=== PATIENT | male | born 1970 | race Two or more races ===

== ENCOUNTER 2022-10-05 02:34 | Emergency (ER) | payer MEDICAID ==
[~2022-10-05] VITALS: Ht 175.3 cm; Wt 80.7 kg
[2022-10-05] MEDS ORDERED: HYDR-3972 PO (03:56)
[2022-10-05] MEDS ORDERED: HYDROCODONE/APAP 5/325MG TABLET ONE (04:00)
[2022-10-05] MEDS ORDERED: HYDROCODONE/APAP 5/325MG TABLET PO ONE (04:00)
[2022-10-05 04:13] VITALS: BP 130/74
== END 2022-10-05 04:13 | disposition home or self-care (01) ==
LOC: ER 02:36
DX: S22.42XA Multiple fractures of ribs, left side, initial encounter for closed fracture (principal); Z79.899 Other long term (current) drug therapy; X58.XXXA Exposure to other specified factors, initial encounter; Y93.66 Activity, soccer; Y92.89 Other specified places as the place of occurrence of the external cause; Y99.8 Other external cause status
CPT/HCPCS: 71100-TC